=== PATIENT | female | born 1990 | race African-American/Black ===

== ENCOUNTER → 2017-05-27 | Emergency (ER) | payer OTHER ==
[~2017-05-27] MED LIST: SODIUM CHLORIDE 1,000 ML IV STA
[2017-05-27 18:37] VITALS: TEMP 98.4; BMI 48.6
--- NOTE | 2017-05-27 21:37 | PDOC ---
History of Present Illness - General Chief Complaint: Loss of Appetite Stated Complaint: STOMACH PAIN Time Seen by Provider: 05/27/17 19:38 - History of Present Illness Initial Comments: 05/27/17 22:06 Patient is a 27 year old female who presents with loss of appetite. Patient reports a sensation of stomach pressure and discomfort after eating and drinking over the past month. She states that she has had this issue over the past 2 years and was evaluated for it over a year ago with a negative work up. She also reports a loss of appetite over the past 2 weeks with a 7 pound weight loss over the past week prompting her visit to the ED today. She states that she has no abdominal pain, only some pressure and discomfort after eating. She denies any nausea, vomiting, fevers, chills, chest pain, SOB, or changes with urination or bowel movements. Past History - Past Medical History Allergies/Adverse Reactions: Allergies Allergy/AdvReac Type Severity Reaction Status Date / Time No Known Drug Allergies Allergy Verified 05/27/17 18:33 Home Medications: Ambulatory Orders NK [No Known Home Medication] 12/16/15 Anemia: No Asthma: No Cancer: No Cardiac Disorders: No CVA: No COPD: No CHF: No Dementia: No Diabetes: No GI Disorders: No Disorders: No HTN: No Hypercholesterolemia: No Liver Disease: No Seizures: No Thyroid Disease: No - Immunization History Immunization Up to Date: Yes - Psycho/Social/Smoking Cessation Hx Anxiety: No Suicidal Ideation: No Smoking Status: No Smoking History: Never smoked Have you smoked in the past 12 months: No Number of Cigarettes Smoked Daily: 0 Cigars Per Day: 0 Information on smoking cessation initiated: No Hx Alcohol Use: No Drug/Substance Use Hx: No Substance Use Type: None Hx Substance Use Treatment: No Review of Systems - Review of Systems Constitutional: No: Chills, Fever Respiratory: No: Cough, Shortness of Breath Cardiac (ROS): No: Chest Pain, Lightheadedness, Palpitations ABD/GI: Yes: Poor Appetite, Poor Fluid Intake. No: Constipated, Diarrhea, Difficulty Swallowing, Nausea, Vomiting, Tarry Stools : No: Burning, Dysuria Integumentary: No: Rash Neurological: No: Headache, Numbness, Tingling, Weakness *Physical Exam - Vital Signs Last Vital Signs Temp Pulse Resp BP Pulse Ox 98.4 F 66 17 148/80 100 05/27/17 18:34 05/27/17 18:34 05/27/17 18:34 05/27/17 18:34 05/27/17 18:34 - Physical Exam Comments: 05/27/17 22:14 General Appearance: Nourished, Obese. No Apparent Distress HEENT: No Pharyngeal Erythema, Tonsillar Exudate, Tonsillar Erythema Respiratory/Chest: Lungs Clear, Normal Breath Sounds. No Crackles, Rales, Rhonchi, Wheezing Cardiovascular: Regular Rhythm, Regular Rate. No Murmur, Gallop/S3, Gallop/S4 Gastrointestinal/Abdominal: Normal Bowel Sounds, Soft. No Guarding, Rebound, Tenderness Integumentary: Normal Color, Dry, Warm Neurologic: Fully Oriented, Alert, Normal Mood/Affect, Normal Response ED Treatment Course - LABORATORY CBC & Chemistry Diagram: 05/27/17 21:44 05/27/17 21:44 Medical Decision Making - Medical Decision Making 05/27/17 23:01 Patient is a 27 year old female who presents with loss of appetite and abdominal discomfort. The patient has been previously evaluated for similar complaints over a year ago with a negative work up. Her symptoms appear to be associated with food and liquid intake, but the patient denies any actual pain making us less concerned for gallbladder pathology. Her exam is normal with no tenderness in her abdomen. We will obtain a cbc, cmp and UA to evaluate for any toxic metabolic abnormalities that could be contributing to her symptoms. 05/27/17 23:41 Patient's cbc, cmp, UA are unremarkable. We discussed results with the patient and offered a CT abdomen to look for other pathology which the patient wished to have done. 05/28/17 00:51 CT abdomen showed no acute pathology as preliminarily read by our liquefaction supervisor radiologist. We discussed the results with the patient and recommend that she follow up with her primary care provider and a GI specialist. The patient is agreeable with the plan. *DC/Admit/Observation/Transfer Diagnosis at time of Disposition: Loss of appetite - Discharge Dispostion Disposition: HOME Condition at time of disposition: Good Admit: No - Referrals Referrals: Mary Nuñez [Primary Care Provider] - - Patient Instructions Printed Discharge Instructions: DI for Poor Appetite Additional Instructions: Please return to the ER if you experience concerning or worsening symptoms. Please call to follow up with your primary care provider to discuss your ER visit. We recommend that you keep your follow up with a GI specialist to further evaluate your symptoms. - Attestations Physician Attestion: 05/28/17 00:50 I, Dr. Clifford Silva, attest that this document has been prepared under my direction and personally reviewed by me in its entirety. I further attest, that it accurately reflects all work, treatment, procedures and medical decision -making performed by me.
[2017-05-27 21:55] LABS: BASOPHIL 0.8 % (0-2.0); EOSINOPHIL 1.5 % (0-4.5); MCH 26.3 pg (25.7-33.7); MCHC 32.7 g/dl (32.0-36.0); MEAN CELL VOLUME 80.4 fl (80-96); MEAN PLT VOLUME 7.7 fl (7.5-11.1); NEUTROPHILS 42.5 % (42.8-82.8); PLATELET COUNT 351 K/MM3 (134-434); RDW 13.7 % (11.6-15.6)
[2017-05-27 22:00] LABS: URINE APPEARANCE CLEAR; URINE BILIRUBIN NEGATIVE (NEGATIVE); URINE BLOOD NEGATIVE (NEGATIVE); URINE COLOR YELLOW; URINE GLUCOSE (UA) NEGATIVE (NEGATIVE); URINE KETONE 1+ (NEGATIVE); URINE LEUK ESTERASE NEGATIVE (NEGATIVE); URINE NITRITE NEGATIVE (NEGATIVE)
[2017-05-27 22:01] LABS: URINE PROTEIN 1+ (NEGATIVE)
[2017-05-27 22:02] LABS: URINE MUCUS MANY; URINE RBC 20 /hpf (0-3); URINE WBC 2 /hpf (3-5)
[2017-05-27 22:24] LABS: ALBUMIN 3.6 g/dl (3.4-5.0); ANION GAP 6 (8-16); BILIRUBIN,TOTAL 0.3 mg/dL (0.2-1.0); CALCIUM 8.9 mg/dL (8.5-10.1); CO2 27 mmol/L (21-32); CREATININE 0.7 mg/dL (0.55-1.02); GLUCOSE,RANDOM 80 mg/dL (74-106); SGOT/AST 17 U/L (15-37); SGPT/ALT 22 U/L (12-78)
[2017-05-27 22:25] LABS: ALK PHOS 115 U/L (45-117)
--- NOTE | 2017-05-27 23:21 | PDOC ---
Attending Attestation - Resident Resident Name: ShiraClifford - ED Attending Attestation I have performed the following: I have examined & evaluated the patient, The case was reviewed & discussed with the resident, I agree w/resident's findings & plan, Exceptions are as noted - HPI HPI: 05/27/17 23:19 Agree with the resident's HPI as documented in the electronic medical record. - Physicial Exam PE: 05/27/17 23:20 Agree with the resident's physical examination as documented in the electronic medical record. - Medical Decision Making 05/27/17 23:20 27-year-old female with history of inguinal lymphadenopathy diagnosis in 2016 with a negative biopsy presents the emergency Department with complaints of anorexia for the past month accompanied with a "pressure" sensation in her abdomen when she eats. Differential diagnosis includes but is not limited to: Lymphadenopathy, lymphadenitis, malignancy, gastritis, electrolyte abnormality, toxic/metabolic derangement, dehydration, . Plan: 1. Urine analysis and urine 2. Labs 3. IV fluids for hydration 4. Abdominal imaging 5. Observe and reevaluate
[2017-05-28 01:08] VITALS: BP 138/92; PULSE 64
== END | disposition home or self-care (01) ==
LOC: JERFT 17:54 → JER 17:54
PROC: 3E0337Z Introduction of Electrolytic and Water Balance Substance into Peripheral Vein, Percutaneous Approach (ICD-10-PCS; principal; 2017-05-27)
DX: R63.4 Abnormal weight loss (principal)
CPT/HCPCS: 36415; 74176-TC; 80053; 81003; 81015; 83690; 84703; 85025; 96360; 99282-25

== ENCOUNTER 2017-08-20 12:33 | Emergency (ER) | payer OTHER ==
[2017-08-20 12:47] VITALS: TEMP 98.6; BMI 48.1
--- NOTE | 2017-08-20 14:22 | PDOC ---
Attending Attestation - Resident Resident Name: Alvino Novak - ED Attending Attestation I have performed the following: I have examined & evaluated the patient, The case was reviewed & discussed with the resident, I agree w/resident's findings & plan, Exceptions are as noted - HPI HPI: 08/20/17 16:07 pt with diarrhea since saturday after eating shell fish - unable to tolerate po bc causes diarrhea. Nonbloody. Dr Núñez is GI and did endoscopy for gastritis 1m ago. No f/c. No vomiting. No dysuria. No other complaints. - Physicial Exam PE: 08/20/17 16:08 Gen: aaox3, nad, ambulatory with a steady gait heart: +s1s2 reg Lungs: cta b/l abd: soft, mild ttp epigastric region, no cva ttp, no rebound or guarding, obese ext: no c/c/e - Medical Decision Making 08/20/17 14:22 I, Dr. Akilah Scott, DO, attest that this document has been prepared under my direction and personally reviewed by me in its entirety. I further attest, that it accurately reflects all work, treatment, procedures and medical decision -making performed by me. 08/20/17 16:09 a/p: 27yo female with diarrhea since saturday -labs -stool for culture -re-eval -pt refusing IVF hydration. 08/20/17 1649 pt signed out pending further eval to the oncoming physician
--- NOTE | 2017-08-20 14:31 | PDOC ---
History of Present Illness - General Chief Complaint: Pain Stated Complaint: ABD PAIN Time Seen by Provider: 08/20/17 13:56 - History of Present Illness Initial Comments: 08/20/17 14:23 27 yo F with h/o gastritis, and GERD who presents with acute diahrrea. Pt. reports 4 days of improving watery stools. Recently ate fried crab legs and clams this past Saturday ( 08/17 ) with symptom onset hour after food ingestion. No sick contacts. Initially large voluminous stools that are now moderate in size. Stools are semi formed and liquid. Reports 3-7 stools/day. BM' s asx. with diffuse lower quadrant crampy abdominal pain. Stools are non bloody. Denies N/V, fevers/chills, chest pain, SOB, lightheadedness, urinary complaints. Last BM today following 36 hr period of fasting. States that she recently ate soup and aggravated symptoms. No changes in diet. Denies hiking, camping, or recent travels. Endorses oral hydration with gatorade and water. Denies OTC bulk forming agents. Not on BRAN diet or probiotic use. Endoscopy 1 month ago and results pending. Past History - Past Medical History Allergies/Adverse Reactions: Allergies Allergy/AdvReac Type Severity Reaction Status Date / Time No Known Drug Allergies Allergy Verified 08/20/17 12:42 Home Medications: Ambulatory Orders NK [No Known Home Medication] 12/16/15 Anemia: No Asthma: No Cancer: No Cardiac Disorders: No CVA: No COPD: No CHF: No Dementia: No Diabetes: No GI Disorders: No Disorders: No HTN: No Hypercholesterolemia: No Liver Disease: No Seizures: No Thyroid Disease: No - Immunization History Immunization Up to Date: Yes - Suicide/Smoking/Psychosocial Hx Smoking Status: No Smoking History: Never smoked Have you smoked in the past 12 months: No Number of Cigarettes Smoked Daily: 0 Cigars Per Day: 0 Information on smoking cessation initiated: No Hx Alcohol Use: No Drug/Substance Use Hx: No Substance Use Type: None Hx Substance Use Treatment: No Review of Systems - Review of Systems Comments:: 08/20/17 14:45 GENERAL/CONSTITUTIONAL: No fever or chills. No weakness. HEAD, EYES, EARS, NOSE AND THROAT: No change in vision. No ear pain or discharge. No sore throat.- CARDIOVASCULAR: No chest pain or shortness of breath RESPIRATORY: No cough, wheezing, or hemoptysis. GASTROINTESTINAL: + Abdominal pain and diahrrea. No nausea, vomiting, or constipation. GENITOURINARY: No dysuria, frequency, or change in urination. MUSCULOSKELETAL: No joint or muscle swelling or pain. No neck or back pain. SKIN: No rash NEUROLOGIC: No headache, vertigo, loss of consciousness, or change in strength/ sensation. ENDOCRINE: No increased thirst. No abnormal weight change HEMATOLOGIC/LYMPHATIC: No anemia, easy bleeding, or history of blood clots. ALLERGIC/IMMUNOLOGIC: No hives or skin allergy. *Physical Exam - Vital Signs Last Vital Signs Temp Pulse Resp BP Pulse Ox 98.6 F 76 18 145/80 100 08/20/17 12:40 08/20/17 12:40 08/20/17 12:40 08/20/17 12:40 08/20/17 12:40 - Physical Exam Comments: 08/20/17 14:46 GENERAL: Awake, alert, and fully oriented, in no acute distress HEAD: No signs of trauma, normocephalic, atraumatic EYES: PERRLA, EOMI, sclera anicteric, conjunctiva clear ENT: Auricles normal inspection, hearing grossly normal, nares patent, oropharynx clear without exudates. Moist mucosa NECK: Normal ROM, supple, no lymphadenopathy, JVD, or masses LUNGS: No distress, speaks full sentences, clear to auscultation bilaterally HEART: Regular rate and rhythm, normal S1 and S2, no murmurs, rubs or gallops, peripheral pulses normal and equal bilaterally. ABDOMEN: Abdomen distended, slightly ttp in lower quadrants, normoactive bowel sounds. No guarding, rigidity, no rebound. No masses EXTREMITIES : Normal inspection, Normal range of motion, no edema. No clubbing or cyanosis. SKIN: Warm, Dry, normal turgor, no rashes or lesions noted. ED Treatment Course - LABORATORY CBC & Chemistry Diagram: 08/20/17 15:40 08/20/17 15:40 Medical Decision Making - Medical Decision Making 08/20/17 14:51 27 yo F with h/o gastritis, and GERD who presents with acute diarrhea of 4 days duration. Recently ate fried crab legs this past Saturday (08/17) with symptom onset 1 hour after food ingestion. No sick contacts. Initially large voluminous stools that are now moderate in size. No N/V, fevers/chills, or asx. symptoms. Denies hiking, camping, or recent travels. Physical exam benign. Hemodynamically stable. Low suspicion for bacterial enteritis/gastritis. Non toxic appearing and stable. DDx: Viral enteritis, C. diff ED Course: CBC, CMP, UA, Stool Leuks, FOBT, UA, Urine Preg 08/20/17 17:04 CBC, CMP: Unremarkable. Absent transaminitis, or leukocytosis. 08/20/17 17:59 Stable D/C. Pt. advised to return to ED if experience any alarm symptoms. *DC/Admit/Observation/Transfer Diagnosis at time of Disposition: Diarrhea Qualifiers: Diarrhea type: presumed infectious Qualified Code(s): A09 - Infectious gastroenteritis and colitis, unspecified - Discharge Dispostion Disposition: HOME Admit: No - Referrals Referrals: Mary Nuñez [Primary Care Provider] - - Patient Instructions Printed Discharge Instructions: Diarrhea (Alternative Therapy) Additional Instructions: Please return to ED if you experience fevers/chills, nausea/vomiting, worsening diarrhea or abdominal pain, or worsening symptoms. Avoid caffeine, raw fruit, and lactose containing products. Continue adequate oral hydration. - Attestations Physician Attestion: 08/20/17 17:28 I attest to the information provided.
[2017-08-20] MEDS ORDERED: SODIUM CHLORIDE 1,000 ML IV STA (15:38)
[2017-08-20 15:58] LABS: BASOPHIL 0.5 % (0-2.0); EOSINOPHIL 3.4 % (0-4.5); MCH 26.8 pg (25.7-33.7); MCHC 33.9 g/dl (32.0-36.0); MEAN CELL VOLUME 78.9 fl (80-96); MEAN PLT VOLUME 8.1 fl (7.5-11.1); NEUTROPHILS 55.5 % (42.8-82.8); PLATELET COUNT 348 K/MM3 (134-434); RDW 13.5 % (11.6-15.6); WHITE BLOOD COUNT 6.7 K/mm3 (4.0-10.0)
[2017-08-20 16:19] LABS: ALK PHOS 111 U/L (45-117); ANION GAP 11 (8-16); BILIRUBIN,TOTAL 0.4 mg/dL (0.2-1.0); CO2 24 mmol/L (21-32); CREATININE 0.8 mg/dL (0.55-1.02); GLUCOSE,RANDOM 83 mg/dL (74-106); SGOT/AST 9 U/L (15-37); SGPT/ALT 24 U/L (12-78)
[2017-08-20 18:09] LABS: URINE APPEARANCE SLCLOUDY; URINE BILIRUBIN NEGATIVE (NEGATIVE); URINE BLOOD 1+ (NEGATIVE); URINE COLOR AMBER; URINE GLUCOSE (UA) NEGATIVE (NEGATIVE); URINE KETONE TRACE (NEGATIVE); URINE NITRITE NEGATIVE (NEGATIVE)
[2017-08-20 18:11] LABS: URINE PROTEIN 1+ (NEGATIVE)
[2017-08-20 18:17] LABS: URINE RBC 18 /hpf (0-3)
[2017-08-20 18:18] LABS: URINE MUCUS MANY; URINE WBC 2 /hpf (3-5)
[2017-08-20 18:56] VITALS: BP 138/78; PULSE 71
[2017-08-20 20:37] LABS: URINE LEUK ESTERASE Negative (NEGATIVE)
== END 2017-08-20 18:35 | disposition home or self-care (01) ==
LOC: JER 12:33
PROC: 3E0337Z Introduction of Electrolytic and Water Balance Substance into Peripheral Vein, Percutaneous Approach (ICD-10-PCS; principal; 2017-08-20)
DX: A09 Infectious gastroenteritis and colitis, unspecified (principal); Z87.19 Personal history of other diseases of the digestive system
CPT/HCPCS: 36415; 80053; 81003; 81015; 84703; 85025; 96360; 99283-25

== ENCOUNTER 2017-12-10 17:42 | Emergency (ER) | payer OTHER ==
[2017-12-10 17:48] VITALS: TEMP 98.1; BMI 48.4
--- NOTE | 2017-12-10 17:49 | PDOC ---
Rapid Medical Evaluation Time Seen by Provider: 12/10/17 17:45 Medical Evaluation: Allergies Allergy/AdvReac Type Severity Reaction Status Date / Time No Known Drug Allergies Allergy Verified 12/10/17 17:44 12/10/17 17:45 I have performed a brief in-person evaluation of this patient. The patient presents with a chief complaint of: SOB and chest pain starting 3 nights ago, pain worse last night, on OCPs, denies URI symptoms Pertinent physical exam findings: well appearing, lungs ctab I have ordered the following: EKG, CXR The patient will proceed to the ED for further evaluation. Discharge Disposition - Diagnosis Shortness of breath - Referrals - Patient Instructions - Post Discharge Activity
[2017-12-10 18:54] LABS: HEMOGLOBIN 12.2 GM/dL (10.7-15.3); MEAN CELL VOLUME 80.3 fl (80-96); MONO % 7.8 % (3.8-10.2); RDW 13.4 % (11.6-15.6)
[2017-12-10 18:56] LABS: BASO % 0.8 % (0-2.0); EOS % 1.6 % (0-4.5); HEMATOCRIT 36.7 % (32.4-45.2); LYMPH % 50.4 % (8-40); MCH 26.6 pg (25.7-33.7); MCHC 33.2 g/dl (32.0-36.0); MEAN PLT VOLUME 8.1 fl (7.5-11.1); NEUT % 39.4 % (42.8-82.8); PLATELET COUNT 331 K/MM3 (134-434); RBC 4.57 M/mm3 (3.60-5.2); WHITE BLOOD COUNT 6.6 K/mm3 (4.0-10.0)
[2017-12-10 19:11] LABS: INR 1.06 (0.82-1.09)
[2017-12-10 19:28] LABS: ALBUMIN 3.7 g/dl (3.4-5.0); ANION GAP 8 (8-16); BILIRUBIN,TOTAL 0.3 mg/dL (0.2-1.0); BLOOD UREA NITROGEN 7 mg/dL (7-18); CALCIUM 8.4 mg/dL (8.5-10.1); CHLORIDE 106 mmol/L (98-107); CO2 24 mmol/L (21-32); CREATININE 0.6 mg/dL (0.55-1.02); GLUCOSE,RANDOM 77 mg/dL (74-106); POTASSIUM 3.7 mmol/L (3.5-5.1); SGOT/AST 11 U/L (15-37); SGPT/ALT 27 U/L (12-78); SODIUM 138 mmol/L (136-145); TOT PROT 7.9 g/dl (6.4-8.2)
[2017-12-10 19:30] LABS: ALK PHOS 112 U/L (45-117)
--- NOTE | 2017-12-10 21:43 | PDOC ---
History of Present Illness - General History Source: Patient Exam Limitations: No Limitations - History of Present Illness Initial Comments: 12/10/17 22:32 Patient is a 27 year old female with a significant past medical history of gastritis, and GERD, who presents to the ED with complaints of shortness of breath that began last week. Patient reports experiencing intermittent episodes of Sob that was continuous throughout the week and was associated with band like chest pain that began saturday afternoon. She reports chest pain is a band like pain that she states radiates from left to right. Patient reports experiencing associated dry intermittent cough. She reports she is currently using the nuvaring control. Denies nausea, vomiting. Denies fevers, chills. Denies contact with sick individuals, out of state travelling. Denies abdominal pain , Constipation diarrhea, dysuria, hematuria. Denies change in diet, change in appetite. Denies any other symptoms. Allergies: None Social history: No smoking. No alcohol. No illicit drugs. FamHx: Significant for Cardiac disease, and HTN. Surgical history: None PMD: dr. Mary Nuñez <Salvador Sánchez - Last Filed: 12/10/17 22:32> - General History Source: Patient <Anderson Lozada - Last Filed: 12/11/17 00:28> - General Chief Complaint: Shortness of Breath Stated Complaint: CHEST PAIN/ S.O.B Time Seen by Provider: 12/10/17 17:45 Past History <Salvador Sánchez - Last Filed: 12/10/17 22:32> - Past Medical History Anemia: No Asthma: No Cancer: No Cardiac Disorders: No CVA: No COPD: No CHF: No Dementia: No Diabetes: No GI Disorders: No Disorders: No HTN: No Hypercholesterolemia: No Liver Disease: No Seizures: No Thyroid Disease: No - Immunization History Immunization Up to Date: Yes - Suicide/Smoking/Psychosocial Hx Smoking Status: No Smoking History: Never smoked Have you smoked in the past 12 months: No Number of Cigarettes Smoked Daily: 0 Cigars Per Day: 0 Information on smoking cessation initiated: No Hx Alcohol Use: No Drug/Substance Use Hx: No Substance Use Type: None Hx Substance Use Treatment: No <Anderson Lozada - Last Filed: 12/11/17 00:28> - Past Medical History Allergies/Adverse Reactions: Allergies Allergy/AdvReac Type Severity Reaction Status Date / Time No Known Drug Allergies Allergy Verified 12/10/17 17:44 Home Medications: Ambulatory Orders NK [No Known Home Medication] 12/16/15 Review of Systems - Review of Systems Able to Perform ROS?: Yes Comments:: 12/10/17 22:32 CONSTITUTIONAL: Absent: fever, no chills, no fatigue EYES: Absent: visual changes ENT: Absent: ear pain, no sore throat CARDIOVASCULAR: +chest pain. Absent: chest pain, no palpitations RESPIRATORY: +cough. +Sob. GI: Absent: abdominal pain, no nausea, no vomiting, no constipation, no diarrhea GENITOURINARY: Absent: dysuria, no frequency, no hematuria MUSCULOSKELETAL: Absent: back pain, no arthralgia, no myalgia SKIN: Absent: rash <Salvador Sánchez - Last Filed: 12/10/17 22:32> *Physical Exam - Vital Signs Last Vital Signs Temp Pulse Resp BP Pulse Ox 98.1 F 82 18 136/82 100 12/10/17 17:44 12/10/17 17:44 12/10/17 17:44 12/10/17 17:44 12/10/17 17:44 - Physical Exam Comments: 12/10/17 22:33 GENERAL: Well-appearing, well-nourished. No apparent distress. HEENT: Normocephalic, atraumatic. PERRL, EOM intact. CARDIOVASCULAR: Normal S1, S2. Regular rate and rhythm. PULMONARY: +Decreased breath sounds. Clear to auscultation bilaterally. ABDOMEN: Soft, non-distended, non-tender. EXTREMITIES: Normal ROM in all four extremities. No gross deformities. SKIN: Warm, dry. No rash NEUROLOGICAL: No focal neurological deficits. <Salvador Sánchez - Last Filed: 12/10/17 22:32> - Vital Signs Last Vital Signs Temp Pulse Resp BP Pulse Ox 98.1 F 82 18 136/82 100 12/10/17 17:44 12/10/17 17:44 12/10/17 17:44 12/10/17 17:44 12/10/17 17:44 <Anderson Lozada - Last Filed: 12/11/17 00:28> ED Treatment Course - LABORATORY CBC & Chemistry Diagram: 12/10/17 18:30 12/10/17 18:30 - ADDITIONAL ORDERS Additional order review: Laboratory Results 12/10/17 12/10/17 12/10/17 18:30 18:30 18:30 PT with INR INR D-Dimer 664 H Sodium 138 Potassium 3.7 Chloride 106 Carbon Dioxide 24 Anion Gap 8 BUN 7 Creatinine 0.6 Creat Clearance w eGFR > 60 Random Glucose 77 Calcium 8.4 L Magnesium 2.0 Total Bilirubin 0.3 D AST 11 L ALT 27 Alkaline Phosphatase 112 Creatine Kinase 82 Troponin I < 0.02 Total Protein 7.9 Albumin 3.7 Serum , Qual Negative 12/10/17 18:30 PT with INR 12.00 H INR 1.06 D-Dimer Sodium Potassium Chloride Carbon Dioxide Anion Gap BUN Creatinine Creat Clearance w eGFR Random Glucose Calcium Magnesium Total Bilirubin AST ALT Alkaline Phosphatase Creatine Kinase Troponin I Total Protein Albumin Serum , Qual 12/10/17 18:30 RBC 4.57 MCV 80.3 MCHC 33.2 RDW 13.4 MPV 8.1 Neutrophils % 39.4 L D Lymphocytes % 50.4 H D Monocytes % 7.8 Eosinophils % 1.6 Basophils % 0.8 <Salvador Sánchez - Last Filed: 12/10/17 22:32> - LABORATORY CBC & Chemistry Diagram: 12/10/17 18:30 12/10/17 18:30 - ADDITIONAL ORDERS Additional order review: Laboratory Results 12/10/17 12/10/17 12/10/17 18:30 18:30 18:30 PT with INR INR D-Dimer 664 H Sodium 138 Potassium 3.7 Chloride 106 Carbon Dioxide 24 Anion Gap 8 BUN 7 Creatinine 0.6 Creat Clearance w eGFR > 60 Random Glucose 77 Calcium 8.4 L Magnesium 2.0 Total Bilirubin 0.3 D AST 11 L ALT 27 Alkaline Phosphatase 112 Creatine Kinase 82 Troponin I < 0.02 Total Protein 7.9 Albumin 3.7 Serum , Qual Negative 12/10/17 18:30 PT with INR 12.00 H INR 1.06 D-Dimer Sodium Potassium Chloride Carbon Dioxide Anion Gap BUN Creatinine Creat Clearance w eGFR Random Glucose Calcium Magnesium Total Bilirubin AST ALT Alkaline Phosphatase Creatine Kinase Troponin I Total Protein Albumin Serum , Qual 12/10/17 18:30 RBC 4.57 MCV 80.3 MCHC 33.2 RDW 13.4 MPV 8.1 Neutrophils % 39.4 L D Lymphocytes % 50.4 H D Monocytes % 7.8 Eosinophils % 1.6 Basophils % 0.8 <Anderson Lozada - Last Filed: 12/11/17 00:28> Medical Decision Making - Medical Decision Making 12/11/17 00:26 Dr. Lozada: The scribe's documentation has been prepared under my direction and personally reviewed by me in its entirery. I confirm that the note above accurately reflects all work, treatment, procedures, and medical decision making performed by me. all studies including blood work, chest CTA returned showing no pathology at this time. Patient advised to follow up with cardiology further evaluation. <Anderson Lozada - Last Filed: 12/11/17 00:28> *DC/Admit/Observation/Transfer - Attestations Scribe Attestion: 12/10/17 22:33 Documentation prepared by Salvador Sánchez, acting as medical technologist chemistry for Anderson Lozada MD/DO. <Salvador Sánchez - Last Filed: 12/10/17 22:32> - Discharge Dispostion Admit: No <Anderson Lozada - Last Filed: 12/11/17 00:28> Diagnosis at time of Disposition: Shortness of breath, Chest pain - Discharge Dispostion Disposition: HOME Condition at time of disposition: Stable - Referrals Referrals: Mary Nuñez [Primary Care Provider] - Sudheer Morelos MD [Staff Physician] - - Patient Instructions Printed Discharge Instructions: DI for Shortness of Breath, DI for Chest Pain Additional Instructions: Please follow up with the boat detailer referred to you as soon as possible. Return if any problems - Post Discharge Activity
[2017-12-11 01:04] VITALS: BP 140/86; PULSE 77
--- NOTE | 2017-12-11 11:06 | EKG ---
Test Reason : Blood Pressure : / mmHG Vent. Rate : 075 BPM Atrial Rate : 075 BPM P-R Int : 144 ms QRS Dur : 096 ms QT Int : 382 ms P-R-T Axes : 059 -12 026 degrees QTc Int : 426 ms NORMAL SINUS RHYTHM MINIMAL VOLTAGE CRITERIA FOR LVH, MAY BE NORMAL VARIANT T WAVE ABNORMALITY, CONSIDER ANTERIOR ISCHEMIA ABNORMAL ECG WHEN COMPARED WITH ECG OF 11-NOV-2013 07:31, NO SIGNIFICANT CHANGE WAS FOUND Confirmed by JAK FISHER MD ([id number]) on 12/11/2017 11:06:22 AM Referred By: Confirmed By:JAK FISHER MD
== END 2017-12-11 01:05 | disposition home or self-care (01) ==
LOC: JER 17:42
DX: R06.02 Shortness of breath (principal); R07.9 Chest pain, unspecified; K21.9 Gastro-esophageal reflux disease without esophagitis
CPT/HCPCS: 36415; 71046-TC-FY; 71275-TC; 80053; 82550; 83735; 84484; 84703; 85025; 85379; 85610; 93005; 93010; 99283-25

== ENCOUNTER 2019-08-05 16:37 | Emergency (ER) | payer OTHER ==
[2019-08-05 16:43] VITALS: BP 133/68; TEMP 98; BMI 48.9
--- NOTE | 2019-08-05 18:34 | PDOC ---
History of Present Illness - General Chief Complaint: Pain, Acute Stated Complaint: ABD/PAIN Time Seen by Provider: 08/05/19 18:26 History Source: Patient Exam Limitations: No Limitations - History of Present Illness Initial Comments: 08/05/19 22:06 29 yo female pmh GERD, gastritis, diverticulitis and a hernia presents to the ED for sudden onset epigastric and meena umbilical pain since 1 pm. Pt states she has never had this pain in the past, it is described as a constant sharp and stabbing without radiation. Pt states she is able to eat and drink, does not regularly eat alcohol, no abdominal surgeries, last EGD 1 year ago showed gastritis (sees Dr. Núñez) denies F/C/N/V, changes in bowel or bladder habits, CP or SOB. Pt has hx of enlarged abdominal lymph node requiring Oncology care however, found to be benign Past History - Past Medical History Allergies/Adverse Reactions: Allergies Allergy/AdvReac Type Severity Reaction Status Date / Time No Known Drug Allergies Allergy Verified 08/05/19 16:43 Home Medications: Ambulatory Orders Pantoprazole Sodium PO BID 08/05/19 Anemia: No Asthma: No Cancer: No Cardiac Disorders: No CVA: No COPD: No CHF: No Dementia: No Diabetes: No GI Disorders: No Disorders: No HTN: No Hypercholesterolemia: No Liver Disease: No Seizures: No Thyroid Disease: No - Immunization History Immunization Up to Date: Yes - Psycho Social/Smoking Cessation Hx Smoking Status: No Smoking History: Never smoked Have you smoked in the past 12 months: No Number of Cigarettes Smoked Daily: 0 Cigars Per Day: 0 Hx Alcohol Use: No Drug/Substance Use Hx: No Substance Use Type: None Hx Substance Use Treatment: No Review of Systems - Review of Systems Constitutional: No: Chills, Fever Respiratory: No: Shortness of Breath Cardiac (ROS): No: Chest Pain, Edema ABD/GI: Yes: Other (abdominal pain). No: Constipated, Diarrhea, Nausea, Vomiting : No: Dysuria, Discharge, Frequency, Flank Pain Musculoskeletal: No: Back Pain Integumentary: No: Change in Color Neurological: No: Headache, Numbness, Paresthesia, Weakness, Unsteady Gait *Physical Exam - Vital Signs Last Vital Signs Temp Pulse Resp BP Pulse Ox 98.0 F 67 16 133/68 100 08/05/19 16:40 08/05/19 16:40 08/05/19 16:40 08/05/19 16:40 08/05/19 16:40 - Physical Exam General Appearance: Yes: Nourished, Appropriately Dressed. No: Apparent Distress HEENT: positive: EOMI, KAI Neck: positive: Supple. negative: Carotid bruit Respiratory/Chest: positive: Lungs Clear, Normal Breath Sounds. negative: Respiratory Distress, Decreased Breath Sounds, Crackles, Rales, Rhonchi Cardiovascular: positive: Regular Rhythm, Regular Rate, S1, S2. negative: Edema , JVD, Murmur Vascular Pulses: Dorsalis-Pedis (R): 4+, Doralis-Pedis (L): 4+ Gastrointestinal/Abdominal: positive: Tender (epigastric and periumbilical), Flat, Soft. negative: Pulsatile Mass, Distended, Guarding, Rebound Musculoskeletal: negative: CVA Tenderness Extremity: positive: Normal Capillary Refill, Normal Inspection Integumentary: positive: Normal Color, Dry, Warm Neurologic: positive: Fully Oriented, Alert, Normal Mood/Affect ED Treatment Course - LABORATORY CBC & Chemistry Diagram: 08/05/19 18:50 08/05/19 18:50 Medical Decision Making - Medical Decision Making 08/05/19 22:17 29 yo female pmh GERD, gastritis, diverticulitis and a hernia presents to the ED for sudden onset epigastric and meena umbilical pain since 1 pm. Pt states she has never had this pain in the past, it is described as a constant sharp and stabbing without radiation. Pt states she is able to eat and drink, does not regularly eat alcohol, no abdominal surgeries, last EGD 1 year ago showed gastritis (sees Dr. Núñez) denies F/C/N/V, changes in bowel or bladder habits, CP or SOB. Pt has hx of enlarged abdominal lymph node requiring Oncology care however, found to be benign vitals wnl Labs WNL, lipase neg, WBC neg pending CT with IV contrast of AB/PEL Likely DC home if no acute abdominal findings 08/05/19 22:53 CT shows small liver cyst, leiomyoma and small umbilical hernia containing only fat. Pt safe for DC home with GI follow up Discharge - Discharge Information Problems reviewed: Yes Clinical Impression/Diagnosis: Abdominal pain Qualifiers: Abdominal location: epigastric Qualified Code(s): R10.13 - Epigastric pain Condition: Stable Disposition: HOME - Admission No - Follow up/Referral Referrals: Mary Nuñez [Primary Care Provider] - Jerman Núñez MD [Staff Physician] - - Patient Discharge Instructions Patient Printed Discharge Instructions: DI for Abdominal Pain-Adult Additional Instructions: Please see your primary doctor within the next [address] Núñez, your GI doctor as soon as possible and show him your CT scan results. Return to ER for new or concerning findings including but not limited to: abdominal pain, inability to eat or drink, fevers/chills. Take over the counter Tylenol or Motrin for pain every 4-6 hours as needed. Thank you - Post Discharge Activity
--- NOTE | 2019-08-05 19:08 | PDOC ---
Attending Attestation - Resident Resident Name: Pool Gamboa - ED Attending Attestation I have performed the following: I have examined & evaluated the patient, The case was reviewed & discussed with the resident, I agree w/resident's findings & plan - HPI HPI: 08/05/19 19:08 29 year old female with a significant past medical history of gastritis, GERD, hidradenitis suppuritiva, anemia presenting with epigastric abdominal pain since 1pm denies exacerbating or alleviating factors Prior ED evaluations for abdominal pain and symptom management. No f/c, cp, vomiting, diarrhea, urinary sx. GI: Dr Núñez - last seen 1 year ago, EGD with gastritis. has previously been on courses of abx for HS - including bactrim, doxycycline - last this summer08/05/19 20:41 08/05/19 20:41 08/05/19 20:42 08/05/19 20:43 - Physicial Exam PE: 08/05/19 19:08 Agree with the resident's HPI and PE as documented in the electronic medical record. NAD, well appearing, EOMI, PERRL, nl conjunctiva, anicteric; neck supple. lungs clear, RRR, abdomen soft periumbilical/epigastric TTP, +obese. neg weinberg' s, no mcburney's or pelvic tenderness in lower abdomen. no rebound, guarding. Back nontender. MIRANDA x4, no focal neuro deficits. No peripheral edema. normal color for ethnicity, WWP. 08/05/19 20:41 - Medical Decision Making 08/05/19 19:08 Vital Signs Temp Pulse Resp BP Pulse Ox 98.0 F 67 16 133/68 100 08/05/19 16:40 08/05/19 16:40 08/05/19 16:40 08/05/19 16:40 08/05/19 16:40 DDx abdominal pain: Renal colic, biliary colic, metabolic/electrolyte derangements. GERD, PUD, esophageal spasm, pancreatitis, hepatitis, constipation , colitis, gastroenteritis, cholecystitis, UTI, pyelonephritis, ileus, SBO, medication side effect, hernia, appendicitis, diverticulitis, mesenteric ischemia. msk strain, mesenteric adenitis, psoas abscess. labs and lytes, lipase, LFTs analgesia, IVF, GI cocktail reassess CT a/p to eval for hernia/adenitis/infection/inflammation s/o pending imaging, reeval and ultimate dispo 08/05/19 20:42
[2019-08-05 19:10] LABS: BASO % 0.8 % (0-2.0); EOS % 1.7 % (0-4.5); HEMATOCRIT 38.1 % (32.4-45.2); HEMOGLOBIN 12.8 GM/dL (10.7-15.3); LYMPH % 56.1 % (8-40); MCH 28.3 pg (25.7-33.7); MCHC 33.5 g/dl (32.0-36.0); MEAN CELL VOLUME 84.3 fl (80-96); MEAN PLT VOLUME 8.4 fl (7.5-11.1); MONO % 6.9 % (3.8-10.2); NEUT % 34.5 % (42.8-82.8); PLATELET COUNT 332 K/MM3 (134-434); RBC 4.51 M/mm3 (3.60-5.2); RDW 13.9 % (11.6-15.6); WHITE BLOOD COUNT 6.6 K/mm3 (4.0-10.0)
[2019-08-05 19:46] LABS: ALBUMIN 4.1 g/dl (3.4-5.0); BILIRUBIN,TOTAL 0.4 mg/dL (0.2-1); BLOOD UREA NITROGEN 12.1 mg/dL (7-18); CALCIUM 9.1 mg/dL (8.5-10.1); CREATININE 0.7 mg/dL (0.55-1.3); TOT PROT 8.1 g/dl (6.4-8.2)
[2019-08-05 23:09] VITALS: PULSE 84
== END 2019-08-05 23:09 | disposition home or self-care (01) ==
LOC: JER 16:37
DX: R10.13 Epigastric pain (principal); K21.9 Gastro-esophageal reflux disease without esophagitis; K29.70 Gastritis, unspecified, without bleeding; K57.92 Diverticulitis of intestine, part unspecified, without perforation or abscess without bleeding; K46.9 Unspecified abdominal hernia without obstruction or gangrene
CPT/HCPCS: 36415; 74177-TC; 80053; 83690; 84703; 85025; 99283-25

== ENCOUNTER 2020-06-27 04:44 | Day surgery (SDC) | payer OTHER ==
[2020-06-23 12:38] VITALS: BMI 48.4
[2020-06-27] MEDS ORDERED: IBUPROFEN 400 MG TABLET (FP) PO PRN (10:24)
[2020-06-27] MEDS ORDERED: oxyCODONE HCL 5 MG TABLET PO PRN ×2 (10:24→12:01)
[2020-06-27] MEDS ORDERED: ACETAMINOPHEN 325 MG TABLET (FP) PO PRN (10:24)
--- NOTE | 2020-06-27 10:24 | HP ---
History & Physical Update - History History: No Change - Physical Physical: No Change - Assessment Assessment: No Change - Plan Plan: No Change (No change in HP)
[2020-06-27] MEDS ORDERED: MIDAZOLAM HCL 2 MG/2 ML SINGLE DOSE VIAL ONE (10:32)
[2020-06-27] MEDS ORDERED: PROPOFOL 20 ML ONE (10:32)
[2020-06-27] MEDS ORDERED: LIDOCAINE HCL/PF 2% SDV 5ML VIAL ONE (10:32)
--- NOTE | 2020-06-27 11:15 | EKG ---
Test Reason : Blood Pressure : / mmHG Vent. Rate : 073 BPM Atrial Rate : 073 BPM P-R Int : 144 ms QRS Dur : 096 ms QT Int : 384 ms P-R-T Axes : 067 -11 047 degrees QTc Int : 423 ms NORMAL SINUS RHYTHM WITH SINUS ARRHYTHMIA NORMAL ECG WHEN COMPARED WITH ECG OF 10-DEC-2017 18:28, NO SIGNIFICANT CHANGE WAS FOUND Confirmed by TOYA REYES MD ([id number]) on 06/27/2020 11:15:12 AM Referred By: Confirmed By:TOYA REYES MD
[2020-06-27] MEDS ORDERED: DEXAMETHASONE SOD PHOSPHATE 4 MG/1 ML VIAL ONE (11:17)
[2020-06-27] MEDS ORDERED: KETOROLAC TROMETHAMINE 30 MG/1 ML VIAL ONE (11:19)
[2020-06-27] MEDS ORDERED: PROMETHAZINE HCL 25 MG/1 ML VIAL IVPB PRN (12:01)
[2020-06-27] MEDS ORDERED: ONDANSETRON 4 MG/2 ML VIAL IVPUSH PRN (12:01)
[2020-06-27] MEDS ORDERED: LACTATED RINGERS SOLUTION 1,000 ML IV SCH (12:15)
--- NOTE | 2020-06-27 12:15 | OP ---
DATE OF OPERATION: 06/27/2020 PREOPERATIVE DIAGNOSES: Endometrial polyps and submucosal myoma. OPERATION: 1. Hysteroscopic myomectomy. 2. Fractional dilatation and curettage. POSTOPERATIVE DIAGNOSES: Endometrial polyps and submucosal myoma. SURGEON: Kaleigh Rojo MD ANESTHESIA: General. ANESTHESIOLOGIST: Williams Kraft MD FINDINGS: Endometrial polyp seen as well as submucosa myoma anterior aspect of the uterus. DESCRIPTION OF PROCEDURE: Patient was taken to the operating room, placed in the dorsal lithotomy position, prepped and draped in the usual sterile fashion. A timeout was performed in accordance with hospital regulations. Speculum was placed in the vagina. Anterior lip of the cervix was grasped with a single-toothed tenaculum. Cervix was then dilated to accommodate the operative hysteroscope. Visualization revealed endometrial polyps. Cautery and cutting of the anterior abdominal wall revealed submucosal myoma. Suction dilatation and curettage were done. This procedure was repeated 3 to 4 times. All contents were submitted to Pathology. All instruments were then removed. The patient tolerated the procedure well. Estimated blood loss 30 mL. KALEIGH ROJO M.D. RADHA/[id number]
[2020-06-27 15:34] VITALS: BP 148/78; PULSE 68; TEMP 97.8
--- NOTE | 2020-06-28 14:40 | PATH ---
Surgical Pathology Report Patient Name: STEPHON GARZA [facility]. Rec. #: [id number] /Age/Gender: 1990 (Age: 30) / F Account: [id number] Location: [facility] Taken: 06/27/2020 Received: 06/27/2020 Reported: 06/28/2020 Physicians: Kaleigh Rojo M.D. Specimen(s) Received ENDOMETRIAL POLYP AND FIBROID Clinical History Fibroid/endometrial polyp Final Diagnosis FIBROID AND ENDOMETRIAL POLYP, POLYPECTOMY, D&C SUCTION: FRAGMENTS OF ENDOMETRIAL POLYP. PORTIONS OF SMOOTH MUSCLE BUNDLES, CONSISTENT WITH SUBMUCOSAL LEIOMYOMA. SEPARATE SECRETORY TYPE ENDOMETRIUM. ENDOCERVICAL TISSUE WITH NO SIGNIFICANT PATHOLOGIC CHANGE. Electronically Signed Velasquez Marroquin M.D. Gross Description Received in formalin labeled "fibroid and endometrial polyp," is a 2 g, 4.5 x 3.0 x 0.3 cm aggregate of smith-red soft tissue fragments. The formalin is filtered and the specimen is entirely submitted in 3 cassettes. /06/27/2020 saudi/06/27/2020
== END 2020-06-27 14:30 | disposition home or self-care (01) ==
LOC: JASU-SURG 04:44
PROVIDERS: ATTEND Obstetrics & Gynecology
PROC: 0UJD8ZZ Inspection of Uterus and Cervix, Via Natural or Artificial Opening Endoscopic (ICD-10-PCS; 2020-06-27)
PROC: 0UB98ZZ Excision of Uterus, Via Natural or Artificial Opening Endoscopic (ICD-10-PCS; principal; 2020-06-27 09:30)
PROC: 0UDB7ZX Extraction of Endometrium, Via Natural or Artificial Opening, Diagnostic (ICD-10-PCS; 2020-06-27 09:30)
DX: D25.0 Submucous leiomyoma of uterus (principal); N84.0 Polyp of corpus uteri; E66.01 Morbid (severe) obesity due to excess calories; I10 Essential (primary) hypertension
CPT/HCPCS: 36415; 84703; 86850; 86900; 86901; 88305-TC; 93005; 93010; 94760

== ENCOUNTER 2021-07-03 14:31 | Emergency (ER) | payer OTHER ==
[2021-07-03 15:24] VITALS: BP 137/95; TEMP 98.7; BMI 50.5
[2021-07-03 15:47] VITALS: PULSE 90
== END 2021-07-03 15:48 | disposition home or self-care (01) ==
LOC: JER 14:31
DX: H53.8 Other visual disturbances (principal)
CPT/HCPCS: 99283-25; 99284-25

== ENCOUNTER 2022-11-19 12:41 | Emergency (ER) | payer OTHER ==
[2022-11-19 12:47] VITALS: BP 138/88; PULSE 117; RESP 20; TEMP 98.3; BMI 50.8
== END 2022-11-19 13:50 | disposition home or self-care (01) ==
LOC: JERFT 12:41
DX: S93.601A Unspecified sprain of right foot, initial encounter (principal); X50.9XXA Other and unspecified overexertion or strenuous movements or postures, initial encounter
CPT/HCPCS: 73630-TC-RT-FY; 99283-25